=== PATIENT | female | born 1985 | race Caucasian/White ===

== ENCOUNTER 2022-03-16 12:11 | Emergency (ER) | payer OTHER ==
[~2022-03-16] VITALS: Ht 165.1 cm; Wt 98.6 kg
[2022-03-16 12:18] VITALS: BP 122/84
[2022-03-16] MEDS ORDERED: NACL 0.9% 1,000 ML IV ONE (13:35)
--- NOTE | 2022-03-16 13:39 | NUR ---
US AT BEDSIDE
--- NOTE | 2022-03-16 14:10 | NUR ---
37YO FEMALE PT C/O MILD VAGINAL BLEEDING X1030 TODAY. REPORTS "PINK" BLEEDING AND GOING THROUGH 2 PADS. PT CURRENTLY 11 WEEKS PREG. A1. SALVATORE 09/27/22. C/O LOWER BACK CRAMPING W/ S/S OF SCIATICA. STATES MILD NAUSEA. DENIES ABDOMINAL/PELVIC PAIN ,DIZZINESS, V/D, CHETS PAIN, FEVER OR CHILLS. PT AAOX4, RESPIRATIONS EVEN AND UNLABORED. HX:VERTIGO , ANXIETY, GASTRITIS ALLERGIES:SULFA
[2022-03-16 14:52] LABS: BASOPHILS # (AUTO) 0.1 K/uL (0.00-0.22); BASOPHILS % (AUTO) 0.5 % (0.0-2.0); EOSINOPHILS # (AUTO) 0.3 K/uL (0-0.4); EOSINOPHILS % (AUTO) 2.2 % (0.0-4.0); HEMATOCRIT 38.2 % (36-48); HEMOGLOBIN 13.2 g/dL (12.0-16.0); MEAN CORPUSCULAR HEMOGLOBIN 32 pg (27-31); MEAN CORPUSCULAR HGB CONC 35 g/dL (33-37); MEAN CORPUSCULAR VOLUME 92.8 fL (80-94); MONOCYTES # (AUTO) 0.6 K/uL (0.8-1.0); MONOCYTES % (AUTO) 4.7 % (1.7-9.3); NEUTROPHILS # (AUTO) 8.6 K/uL (1.8-7.7); NEUTROPHILS % (AUTO) 68.6 % (42.2-75.2); PLATELET COUNT (AUTO) 313 K/uL (140-450); RED BLOOD CELL COUNT(AUTO) 4.12 MIL/uL (4.20-5.40); RED CELL DISTRIBUTION WIDTH 13.3 % (11.6-13.7); WHITE BLOOD COUNT (AUTO) 12.6 K/uL (4.8-10.8)
[2022-03-16 14:53] LABS: APPEARANCE,URINE CLEAR (CLEAR); BILIRUBIN,URINE NEGATIVE (NEGATIVE); BLOOD, URINE 3+ (NEGATIVE); COLOR,URINE YELLOW (YELLOW); LEUKOCYTE ESTERASE ,URINE NEGATIVE (NEGATIVE); NITRITE, URINE NEGATIVE (NEGATIVE); PH,URINE 6.5 (5.0-9.0); UGLUCOSE NEGATIVE (NEGATIVE)
[2022-03-16 15:18] LABS: RBC,URINE TOO NUMEROUS TO COUN /HPF (0-5); WBC,URINE NONE SEEN /HPF (0-5)
--- NOTE | 2022-03-16 16:00 | NUR ---
IV removed, catheter intact and site benign. Applied folded 4x4 gauze and tape to stop bleeding.
[2022-03-16] MEDS ORDERED: ACET-9882 PO (16:03)
[2022-03-16 16:33] VITALS: BP 139/70
--- NOTE | 2022-03-16 16:33 | NUR ---
Patient discharged with v/s stable. Written and verbal after care instructions FOR THREATENED MISSCARRIAGE AND SUBCONJUCTIVAL HEMORRHAGE given and explained. Patient alert, oriented and verbalized understanding of instructions. Ambulatory with steady gait. All questions addressed prior to discharge. ID band removed. Patient advised to follow up with PMD. Rx of ACETAMINOPHEN given. Opportunity to ask questions provided and answered.
--- NOTE | 2022-03-16 16:35 | NUR ---
Chart checked and completed. The patient's care was reviewed and supervised by Brinda Almaraz RN.
== END 2022-03-16 16:33 | disposition home or self-care (01) ==
LOC: MED 12:11
DX: O20.0 Threatened abortion (principal); Z3A.11 11 weeks gestation of pregnancy; Z79.899 Other long term (current) drug therapy
CPT/HCPCS: 36415; 76817; 81001; 81025; 84702; 85025; 86900; 86901; 96360; 99285; J7030; Q0092